=== PATIENT | male | born 1990 | race Caucasian/White ===

== ENCOUNTER 2018-11-02 13:06 | Emergency (ER) | payer OTHER ==
[~2018-11-02] VITALS: Ht 167.6 cm; Wt 68.0 kg
[2018-11-02] MEDS ORDERED: ASPIR 8181 MG PO (13:19)
[2018-11-02] MEDS ORDERED: OXYCODONE HCL 55 MG PO (13:19)
[2018-11-02] MEDS ORDERED: STOOL SOFTENER100 MG PO (13:20)
[2018-11-02 13:58] LABS: ABSOLUTE EOSINOPHILS 0.1 thou/uL (0.0-0.7); ABSOLUTE LYMPHOCYTES 1.1 thou/uL (0.8-5.3); BASOPHILS 0.6 %; EOSINOPHILS 1.5 %; HEMOGLOBIN 16.1 gm/dL (14.0-18.0); LYMPHOCYTES 13.3 %; MCHC 35.7 g/dL (28.0-37.0); MCV 81.1 fL (80.0-100.0); MONOCYTES 11.8 %; MPV 8.3 fl. (7.2-11.1); NUCLEATED RBCS 0 /100WBC; PLATELET COUNT* 259 thou/uL (150-400); POLYS 72.8 %; RBC 5.54 mil/uL (4.50-6.00); RDW-CV 12.4 % (10.5-14.5); WBC 8.3 thou/uL (4.0-11.0)
[2018-11-02 14:02] LABS: CALCIUM 9.5 mg/dL (8.5-10.1); POTASSIUM 4.2 mmol/L (3.5-5.1)
[2018-11-02 15:25] VITALS: BP 127/75
== END 2018-11-02 15:25 | disposition home or self-care (01) ==
LOC: M.ERS 13:06
PROVIDERS: Nurse Practitioner Family
DX: R22.41 Localized swelling, mass and lump, right lower limb (principal); Z88.8 Allergy status to other drugs, medicaments and biological substances

== ENCOUNTER 2019-03-12 10:03 | Emergency (ER) | payer OTHER ==
[~2019-03-12] VITALS: Ht 165.1 cm; Wt 70.3 kg
[~2019-03-12 10:03] MED LIST: ASPIR 8181 MG PO; OXYCODONE HCL 55 MG PO; STOOL SOFTENER100 MG PO
[2019-03-12 10:46] LABS: ABSOLUTE EOSINOPHILS 0.1 thou/uL (0.0-0.7); ABSOLUTE LYMPHOCYTES 1.1 thou/uL (0.8-5.3); ABSOLUTE MONOCYTES 0.6 thou/uL (0.0-1.2); ABSOLUTE NEUTROPHILS 3.5 thou/uL (1.6-8.1); BASOPHILS 0.6 %; EOSINOPHILS 1.6 %; HEMATOCRIT 44.4 % (42.0-52.0); HEMOGLOBIN 15.7 gm/dL (14.0-18.0); LYMPHOCYTES 20.4 %; MCHC 35.3 g/dL (28.0-37.0); MCV 82.1 fL (80.0-100.0); MONOCYTES 10.8 %; MPV 8.5 fl. (7.2-11.1); NUCLEATED RBCS 0 /100WBC; PLATELET COUNT* 247 thou/uL (150-400); POLYS 66.6 %; RBC 5.42 mil/uL (4.50-6.00); RDW-CV 12.7 % (10.5-14.5); WBC 5.2 thou/uL (4.0-11.0)
[2019-03-12 10:56] LABS: ANION GAP 9 mmol/L (7-16); BUN 10 mg/dL (7-18); CHLORIDE 104 mmol/L (98-107); CO2 29 mmol/L (21-32); CREATININE 0.9 mg/dL (0.6-1.3); GLUCOSE 109 mg/dL (70-99); POTASSIUM 3.9 mmol/L (3.5-5.1); SODIUM 142 mmol/L (136-145)
[2019-03-12 11:00] LABS: INR 1.1; PROTIME 10.9 Seconds (9.20-11.50)
[2019-03-12 11:09] LABS: ALBUMIN 3.9 g/dL (3.4-5.0); ALKALINE PHOSPHATASE 97 U/L (46-116); LIPASE 85 U/L (73-393); MAGNESIUM 1.9 mg/dL (1.8-2.4); NT-PRO BRAIN NAT PEPTIDE 22 pg/mL (<300); SGOT 14 U/L (15-37); SGPT 21 U/L (30-65); TOTAL PROTEIN 7.3 g/dL (6.4-8.2); TROPONIN-I LEVEL <0.06 ng/mL (<0.06)
[2019-03-12] MEDS ORDERED: HYDROCODONE-AP1 EAC6 PO (13:15)
[2019-03-12 13:26] VITALS: BP 120/67
--- NOTE | 2019-03-13 12:43 | EKG ---
[place] [address] ELECTROCARDIOGRAM REPORT Name: JEN LUJAN Room: [facility]#: [id number] Admission: 03/12/19 Attend Phys: Discharge: 03/12/19 Date of : [birth year] Report #: [id number] THIS REPORT FOR: //name// [facility] ED Test Date: 2019-03-12 Test Time: 10:07:05 Pat Name: JEN LUJAN Department: Room: Gender: Cannoneer: Elaine CUMMINGS : 1990 Requested By: Holden Renteria Order Number: [id number] MD: Jay Lomas Measurements Intervals [place] Rate: 67 P: 34 HI: 129 QRS: 80 QRSD: 99 T: 57 QT: 371 QTc: 392 Interpretive Statements Sinus rhythm No previous ECG available for comparison Electronically Signed On 03-13-2019 12:43:20 CDT by Jay Lomas [email or web address] <ELECTRONICALLY SIGNED> By: Jay Lomas MD, [facility] 03/13/19 1243 1007 1007 Jay Lomas MD, FACC /EPI
== END 2019-03-12 13:29 | disposition home or self-care (01) ==
LOC: M.ERS 10:03
PROVIDERS: Emergency Medicine Emergency Medical Services
DX: R10.84 Generalized abdominal pain (principal); Z91.048 Other nonmedicinal substance allergy status